=== PATIENT | male | born 1930 | race Caucasian/White ===

== ENCOUNTER 2017-01-23 21:41 | Emergency (ER) | payer MEDICARE, BC ==
[2017-01-23] MEDS ORDERED: ONDANSETRON HCL 4 MG/2 ML SOL IV ONE (21:56)
[2017-01-23] MEDS ORDERED: SODIUM CHLORIDE 0.9% 1000 ML SOL IV SCH (22:00)
[2017-01-23] MEDS ORDERED: SODIUM CHLORIDE 0.9% FLUSH 10 ML SOL IV PRN (22:10)
[2017-01-23 22:26] LABS: BASOPHILS % (AUTO) 1 % (0-3); EOSINOPHILS % (AUTO) 0 % (0-9); HEMATOCRIT 38 % (39-53); MEAN CORPUSCULAR HGB CONC 35.7 gm/dl (32.0-36.0); MEAN CORPUSCULAR VOLUME 95 fL (80-100); MONOCYTES % (AUTO) 5.7 % (0-12); NEUTROPHILS % (AUTO) 88.4 % (37-80)
[2017-01-23 22:27] LABS: CALCIUM 8.2 mg/dl (8.5-10.1); POTASSIUM 3.4 mMol/L (3.5-5.1)
[2017-01-23] MEDS ORDERED: LORAZEPAM 2 MG/ML SOL IV ONE (22:27)
[2017-01-23] MEDS ORDERED: ACETAMINOPHEN 500 MG 500 MG TAB PO ONE (22:27)
[2017-01-23] MEDS ORDERED: ACETAMINOPHEN 500 MG 500 MG TAB ONE (22:33)
[2017-01-23] MEDS ORDERED: ONDANSETRON HCL 4 MG/2 ML SOL ONE (22:33)
[2017-01-23] MEDS ORDERED: LORAZEPAM 2 MG/ML SOL ONE (22:34)
[2017-01-23] MEDS ORDERED: FUROSEMIDE 20mg SOL IV ONE (23:43)
[2017-01-23] MEDS ORDERED: FUROSEMIDE 20mg SOL ONE (23:44)
[2017-01-24] MEDS ORDERED: FUROSEMIDE 20mg SOL ONE (00:23)
[2017-01-24 01:08] LABS: APPEARANCE,URINE Cloudy; BILIRUBIN,URINE NEGATIVE (NEGATIVE); COLOR,URINE Yellow; GLUCOSE, URINE (UA) 2+ (NEGATIVE); KETONES,URINE TRACE (NEGATIVE); LEUKOCYTE ESTERASE ,URINE 1+ (NEGATIVE); NITRATE,URINE POSITIVE (NEGATIVE); OCCULT BLOOD,URINE 2+ (NEG-TRACE); PH,URINE >=9.0
[2017-01-24 01:11] VITALS: TEMP 99.6
[2017-01-24 01:12] VITALS: RESP 31
[2017-01-24] MEDS ORDERED: SULFAMETHOXAZOLE/TRIMETHOPRI 800/160 MG PO ONE (01:16)
[2017-01-24] MEDS ORDERED: SULFAMETHOXAZOLE/TRIMETHOPRI 800/160 MG ONE (01:21)
[2017-01-24 02:02] VITALS: PULSE 117; O2SAT 93
[2017-01-24 02:03] VITALS: BP 106/58
== END 2017-01-24 01:40 | disposition home or self-care (01) | DRG 153 ==
LOC: ED 21:41
DX: J06.9 Acute upper respiratory infection, unspecified (principal); N39.0 Urinary tract infection, site not specified
CPT/HCPCS: 36415; 71010; 80048; 81003; 85025; 87040; 87804; 93005; 99285; J1940; J2060; J2405

== ENCOUNTER 2017-01-29 01:57 | Emergency (ER) | payer MEDICARE, BC ==
[2017-01-29 02:05] VITALS: RESP 18; TEMP 97.6; O2SAT 96
[2017-01-29 02:49] VITALS: BP 133/80; PULSE 88
== END 2017-01-29 03:00 | disposition home or self-care (01) | DRG 392 ==
LOC: ED 01:57
DX: K59.00 Constipation, unspecified (principal)
CPT/HCPCS: 74020; 99282